=== PATIENT | male | born 1965 | race Caucasian/White ===

== ENCOUNTER 2019-01-03 12:11 | Inpatient (IN) | payer BC ==
[~2019-01-03] VITALS: Ht 190.5 cm; Wt 109.1 kg
[~2019-01-03 12:11] MED LIST: CYCL-1 PO
[2019-01-03 13:08] LABS: BASOPHILS # (AUTO) 0.1 X10'3 (0-0.2); BASOPHILS % (AUTO) 0.6 % (0-1); EOSINOPHILS % (AUTO) 0.2 % (0-6); HEMATOCRIT 49.5 % (42.0-52.0); HEMOGLOBIN 16.3 g/dl (14.0-17.9); LYMPHOCYTES % (AUTO) 7.6 % (21-51); MEAN CORPUSCULAR HEMOGLOBIN 27.3 PG (27.0-31.0); MEAN CORPUSCULAR VOLUME 82.7 FL (78-98); MEAN PLATELET VOLUME 8.1 FL (7.4-10.4); MONOCYTES # (AUTO) 0.5 X10'3 (0-0.9); NEUTROPHILS # (AUTO) 11.3 X10'3 (1.8-7.7); NEUTROPHILS % (AUTO) 87.6 % (42-75); PLATELET COUNT 310 X10'3 (140-440); RED BLOOD COUNT 5.98 X10'6 (4.70-6.10); RED CELL DISTRIBUTION WIDTH 13.7 % (11.5-14.5)
[2019-01-03 13:20] LABS: INR 1.1 INR; PARTIAL THROMBOPLASTIN TIME 27 SECONDS (22-32)
[2019-01-03 13:24] LABS: ALANINE AMINOTRANSFERASE 41 U/L (12-78); ALBUMIN 4.2 G/DL (3.4-5.0); ALBUMIN/GLOBULIN RATIO 1.3 (1.1-1.5); ALKALINE PHOSPHATASE 80 IU/L (46-116); ANION GAP 10 (8-16); ASPARTATE AMINO TRANSFERASE 23 U/L (10-37); BILIRUBIN,TOTAL 0.6 MG/DL (0.1-1.0); BLOOD UREA NITROGEN 17 MG/DL (7-18); BUN/CREATININE RATIO 16.3 (5.4-32.0); CHLORIDE 104 MMOL/L (99-107); CREATININE 1.04 MG/DL (0.60-1.10); GLUCOSE 135 MG/DL (70-104); POTASSIUM 3.7 MMOL/L (3.5-5.1); SODIUM 138 MMOL/L (135-145); TOTAL CARBON DIOXIDE 24.3 MMOL/L (24-32); TOTAL PROTEIN 7.5 G/DL (6.4-8.2); eGFR 74 ML/MIN
[2019-01-03 13:26] LABS: TROPONIN I < 0.04 NG/ML (0.0-0.05)
[2019-01-03] MEDS ORDERED: LORazepam 2 mg/ml vial IV ONE (15:05)
--- NOTE | 2019-01-03 15:23 | NUR ---
called to teleneuro, monitor placed in room and turned on, waiting for pt to return from MRI called to mri to medicate patient with ativan to complete MRI.
[2019-01-03] MEDS ORDERED: ATOR10TA70 PO (15:55)
[2019-01-03] MEDS ORDERED: OMEP20CA10 PO (15:55)
[2019-01-03] MEDS ORDERED: magnesium 4gm in 100ml NS 100 ML IV PRN (16:05)
[2019-01-03] MEDS ORDERED: mag hydrox/Alum hydrox/simeth 30ml oral suspension PO PRN (16:05)
[2019-01-03] MEDS ORDERED: magnesium Cl slow-release 64mg tablet PO PRN (16:05)
[2019-01-03] MEDS ORDERED: ondansetron/PF 4mg/2ml inj IV PRN (16:05)
[2019-01-03] MEDS ORDERED: magnesium hydroxide 30ml (MOM) UD suspension PO PRN (16:05)
[2019-01-03] MEDS ORDERED: potassium Cl 20 mEq SR tablet PO PRN ×2 (16:05)
[2019-01-03] MEDS ORDERED: acetaminophen 325mg tablet PO PRN ×2 (16:05)
[2019-01-03] MEDS ORDERED: magnesium 2GM in 50ml NS 50 ML IV PRN (16:05)
[2019-01-03] MEDS ORDERED: potassium Cl 40MEQ/NS 500ml 500 ML IV PRN ×2 (16:05)
[2019-01-03] MEDS ORDERED: aspirin 81mg tab.chew PO ONE (16:10)
--- NOTE | 2019-01-03 16:26 | NUR ---
pt speaking to tele neuro currently brandon brannon rn
[2019-01-03 16:54] LABS: PHOSPHORUS 1.8 MG/DL (2.3-4.5)
[2019-01-03 17:00] VITALS: BP 132/72
--- NOTE | 2019-01-03 17:00 | NUR ---
ASSUMED CARE, RECEIVED REPORT FROM LENNY SCHWARTZ.
[2019-01-03] MEDS: normal saline 1000ml 1,000 ML IV SCH (17:31)
--- NOTE | 2019-01-03 18:25 | NUR ---
Problems reprioritized. Patient report given, questions answered & plan of care reviewed with JULIO C SCHWARTZ.
--- NOTE | 2019-01-03 18:26 | NUR ---
Patient in room [facility]TH[facility] 4022. I have received report from EFREN Tyler and had the opportunity to ask questions and assume patient care. Patient is A&O x3, ALICEA and is appropriate. 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 He will have CTA in the am, I will continue to monitor.
[2019-01-03 21:04] LABS: C-REACTIVE PROTEIN 0.17 MG/DL (0.0-0.5); MAGNESIUM 1.8 MG/DL (1.5-2.4)
[2019-01-03 21:18] LABS: HIV ANTIBODY 1&2 RAPID NON-REACTIVE (Neg)
[2019-01-03 22:00] VITALS: BP 124/71
[2019-01-04 02:00] VITALS: BP 124/76
[2019-01-04] MEDS: normal saline 1000ml 1,000 ML IV SCH ×3 (02:45→13:44)
[2019-01-04 05:57] LABS: HEMATOCRIT 45.1 % (42.0-52.0); HEMOGLOBIN 14.7 g/dl (14.0-17.9); MEAN CORPUSCULAR HEMOGLOBIN 27.6 PG (27.0-31.0); MEAN CORPUSCULAR HGB CONC 32.6 g/dL (33.0-36.5); MEAN CORPUSCULAR VOLUME 84.5 FL (78-98); MEAN PLATELET VOLUME 8.3 FL (7.4-10.4); PLATELET COUNT 256 X10'3 (140-440); RED BLOOD COUNT 5.34 X10'6 (4.70-6.10); RED CELL DISTRIBUTION WIDTH 13.6 % (11.5-14.5); WHITE BLOOD COUNT 8.6 X10'3 (4.5-11.0)
[2019-01-04 06:00] VITALS: BP 124/74
--- NOTE | 2019-01-04 06:10 | NUR ---
Patient in room [facility]THO 4022. I have received report from Mile Jennings RN and had the opportunity to ask questions and assume patient care.
[2019-01-04 06:11] LABS: ALBUMIN 3.2 G/DL (3.4-5.0); ANION GAP 7 (8-16); BLOOD UREA NITROGEN 16 MG/DL (7-18); BUN/CREATININE RATIO 16.7 (5.4-32.0); CALCIUM 8.7 MG/DL (8.5-10.1); CHLORIDE 109 MMOL/L (99-107); CHOL/HDL RATIO 2.9 (0.00-4.99); CHOLESTEROL 135 MG/DL (0-200); CREATININE 0.96 MG/DL (0.60-1.10); GLUCOSE 106 MG/DL (70-104); HDL CHOLESTEROL 46 MG/DL (35-60); LDL CHOLESTEROL 81 MG/DL (50-100); MAGNESIUM 1.8 MG/DL (1.5-2.4); PHOSPHORUS 3.2 MG/DL (2.3-4.5); SODIUM 143 MMOL/L (135-145); TRIGLYCERIDES 51 MG/DL (20-135); eGFR 81 ML/MIN
--- NOTE | 2019-01-04 06:16 | NUR ---
Problems reprioritized. Patient report given, questions answered & plan of care reviewed with EFREN Fine.
[2019-01-04] MEDS ORDERED: atorvastatin 10mg tablet PO SCH (08:00)
[2019-01-04] MEDS ORDERED: K and/or MAG REPLACEMENT MC SCH (08:00)
[2019-01-04] MEDS ORDERED: iohexol 350MG/ML 100ml bottle IV ONE (08:12)
[2019-01-04] MEDS ORDERED: aspirin 325mg tablet PO SCH (08:30)
[2019-01-04 10:00] VITALS: BP 130/72
[2019-01-04] MEDS ORDERED: ASPI-611 PO (15:13)
--- NOTE | 2019-01-04 16:48 | NUR ---
Reviewed discharge instructions with pt. Pt verbalized understanding. All of pt's belongings were returned to pt. Pt walked downstairs, accompanied by a friend/family member, who will drive him home. Pt is alert and oriented X 4, no complaints of discomfort.
[2019-01-05 08:13] LABS: HBSAG SCREEN Negative (Negative); HEP A AB, IGM Negative (Negative); HEP B CORE AB, IGM Negative (Negative); HEPATITIS C ANTIBODY <0.1 s/co ratio (0.0-0.9); RPR Non Reactive (Non Reactive)
[2019-01-06 09:09] LABS: PROTEIN S, FREE 132 % (57-157); PROTEIN S, TOTAL 81 % (60-150)
== END 2019-01-04 16:39 | disposition home or self-care (01) | DRG 71 ==
LOC: ER 12:11 → ORTHO 4S 16:07
PROVIDERS: ADMIT Family Medicine; ATTEND Family Medicine
PROC: 4A10X4Z Monitoring of Central Nervous Electrical Activity, External Approach (ICD-10-PCS; principal; 2019-01-03)
PROC: B32T1ZZ Computerized Tomography (CT Scan) of Left Pulmonary Artery using Low Osmolar Contrast (ICD-10-PCS; 2019-01-04)
PROC: B3201ZZ Computerized Tomography (CT Scan) of Thoracic Aorta using Low Osmolar Contrast (ICD-10-PCS; 2019-01-04)
PROC: B32S1ZZ Computerized Tomography (CT Scan) of Right Pulmonary Artery using Low Osmolar Contrast (ICD-10-PCS; 2019-01-04)
PROC: B4201ZZ Computerized Tomography (CT Scan) of Abdominal Aorta using Low Osmolar Contrast (ICD-10-PCS; 2019-01-04)
PROC: B4241ZZ Computerized Tomography (CT Scan) of Superior Mesenteric Artery using Low Osmolar Contrast (ICD-10-PCS; 2019-01-04)
PROC: B4281ZZ Computerized Tomography (CT Scan) of Bilateral Renal Arteries using Low Osmolar Contrast (ICD-10-PCS; 2019-01-04)
PROC: B4211ZZ Computerized Tomography (CT Scan) of Celiac Artery using Low Osmolar Contrast (ICD-10-PCS; 2019-01-04)
DX: G45.4 Transient global amnesia (principal); G93.40 Encephalopathy, unspecified; E78.00 Pure hypercholesterolemia, unspecified; E78.5 Hyperlipidemia, unspecified; K21.9 Gastro-esophageal reflux disease without esophagitis; G89.29 Other chronic pain; M54.9 Dorsalgia, unspecified; Z88.2 Allergy status to sulfonamides; Z79.899 Other long term (current) drug therapy
CPT/HCPCS: 36415; 70450; 70544; 70551; 71045; 71275; 74174; 80048; 80053; 80061; 80074; 82607; 82948; 83735; 84100; 84443; 84484; 85025; 85027; 85303; 85305; 85306; 85610; 85651; 85730; 86140; 86592; 86703; 87070; 93005; 93306; 93880; 95816; 96374; 97161; 99291; G0378; J2060; J7030; Q9967